=== PATIENT | female | born 1950 | race Caucasian/White ===

== ENCOUNTER 2022-08-14 11:02 | Inpatient (IN) | payer MEDICARE ==
[~2022-08-14] VITALS: Ht 160 cm; Wt 59.0 kg
[~2022-08-14 11:02] MED LIST: AMBIEN10 M1; ATIVAN0.5 MG PO; DAYPRO600 M1 PO; NKHM; ULTRAM50 MG PO; XANAX0.25 MG PO
[2022-08-14] MEDS ORDERED: PALIPERIDONE ER3 MG PO (11:39)
[2022-08-14 13:00] VITALS: BP 119/68
[2022-08-14] MEDS ORDERED: CETIRIZINE10 MG PO (14:16)
[2022-08-14] MEDS ORDERED: 24 HOUR ALLER15.8 ML NAS (14:25)
[2022-08-14] MEDS ORDERED: ARTIFICIAL TEAR1511 OP (14:27)
[2022-08-14 20:00] VITALS: BP 106/67
[2022-08-15 07:09] LABS: HEMATOCRIT 33.6 % (37.0-47.0); MANUAL DIFF REFLEX YES; MEAN CELL VOLUME 108.4 fl (81.0-99.0); MEAN CORPUSCULAR HGB 35.8 pg (27.0-31.0); MEAN PLATELET VOLUME 10.7 fl (9.6-12.3); PLATELET COUNT AUTOMATED 126 10*3/uL (130-400); RED CELL DISTRI WIDTH 13.4 % (0-14.5); WHITE BLOOD COUNT 3.4 10*3/uL (4.8-10.8)
[2022-08-15 07:22] VITALS: BP 100/55
[2022-08-15 07:28] LABS: BUN 8 mg/dl (7-24); CHLORIDE 111 mmol/L (98-107); POTASSIUM 4.6 mmol/L (3.5-5.1); SGOT/AST 59 IU/L (3-35); SODIUM 141 mmol/L (136-145); TOTAL PROTEIN 5.9 gm/dL (6.4-8.2)
[2022-08-15 07:40] LABS: ALKALINE PHOSPHATASE 109 U/L (45-117); CHOLESTEROL 118 mg/dL (<200); CREATININE 0.57 mg/dL (0.55-1.02); LDL CHOLESTEROL 57 mg/dL (9-159); SGPT/ALT 88 U/L (12-78); TRIGLYCERIDES 57 mg/dl (<150)
[2022-08-15 08:20] VITALS: BP 118/68; BP 132/88
[2022-08-15 08:20] LABS: ATYPICAL LYMPHS 1 % (0-0); BASOPHILS 1 % (0-1); TOTAL CELLS COUNTED 100 #CELLS
[2022-08-15 08:24] LABS: PLATELET SUFFICIENCY LOW (NORMAL)
[2022-08-15 08:32] LABS: VITAMIN D, 25-HYDROXY 29.2 ng/mL (30-100)
[2022-08-15 20:00] VITALS: BP 116/54
[2022-08-16 08:00] VITALS: BP 116/53
[2022-08-16 20:00] VITALS: BP 114/50
[2022-08-17 08:00] VITALS: BP 108/42
[2022-08-17 08:23] VITALS: BP 138/76
[2022-08-17 20:00] VITALS: BP 124/68
[2022-08-18 08:25] VITALS: BP 122/60
[2022-08-18 20:00] VITALS: BP 112/71
[2022-08-19 07:39] VITALS: BP 101/67
[2022-08-19 20:00] VITALS: BP 131/80
[2022-08-20 07:26] VITALS: BP 122/59
[2022-08-20 19:51] VITALS: BP 108/66
[2022-08-21 07:54] VITALS: BP 105/51
[2022-08-21 08:08] LABS: HEMATOCRIT 38.2 % (37.0-47.0); MEAN CELL VOLUME 108.8 fl (81.0-99.0); MEAN CORPUSCULAR HGB 35.9 pg (27.0-31.0); MEAN PLATELET VOLUME 10.4 fl (9.6-12.3); PLATELET COUNT AUTOMATED 384 10*3/uL (130-400); RED BLOOD COUNT 3.51 10*6/uL (4.10-5.10); RED CELL DISTRI WIDTH 12.7 % (0-14.5); WHITE BLOOD COUNT 5.3 10*3/uL (4.8-10.8)
[2022-08-21 08:15] LABS: MANUAL DIFF REFLEX YES
[2022-08-21 08:26] LABS: ALKALINE PHOSPHATASE 115 U/L (45-117); BUN 10 mg/dl (7-24); CHLORIDE 106 mmol/L (98-107); CREATININE 0.66 mg/dL (0.55-1.02); SGOT/AST 47 IU/L (3-35); SGPT/ALT 66 U/L (12-78); SODIUM 138 mmol/L (136-145)
[2022-08-21 09:11] LABS: BASOPHILS 2 % (0-1); PLATELET SUFFICIENCY NORMAL (NORMAL); TOTAL CELLS COUNTED 100 #CELLS
[2022-08-21 20:00] VITALS: BP 110/64
[2022-08-22 08:00] VITALS: BP 105/56
[2022-08-22 20:00] VITALS: BP 136/75
[2022-08-23 07:28] VITALS: BP 112/48
[2022-08-23 16:05] LABS: BILIRUBIN Negative (Negative); BLOOD Negative (Negative); CLARITY Clear (Clear); COLOR Yellow (Yellow); GLUCOSE Negative (Negative); KETONE Negative (Negative); LEUKO ESTERASE Trace (Negative); NITRITE Negative (Negative); PH 6.5 (4.5-8.0); SPECIFIC GRAVITY <= 1.005 (1.001-1.030); UROBILINOGEN 0.2 E.U./dl (0.0-1.0)
[2022-08-23 16:17] LABS: EPITHELIAL CELLS 0-2; WBC 0-2 wbc/hpf (0-5)
[2022-08-23 20:00] VITALS: BP 103/68
[2022-08-24 07:19] LABS: HEMATOCRIT 35.1 % (37.0-47.0); MEAN CELL VOLUME 108.3 fl (81.0-99.0); MEAN CORPUSCULAR HGB 36.1 pg (27.0-31.0); MEAN CORPUSCULAR HGB CONC 33.3 g/dl (33.0-37.0); MEAN PLATELET VOLUME 10.4 fl (9.6-12.3); PLATELET COUNT AUTOMATED 372 10*3/uL (130-400); RED BLOOD COUNT 3.24 10*6/uL (4.10-5.10); RED CELL DISTRI WIDTH 12.5 % (0-14.5); WHITE BLOOD COUNT 5.3 10*3/uL (4.8-10.8)
[2022-08-24 07:21] LABS: MANUAL DIFF REFLEX YES
[2022-08-24 07:38] LABS: ALKALINE PHOSPHATASE 103 U/L (45-117); BUN 8 mg/dl (7-24); CHLORIDE 110 mmol/L (98-107); CREATININE 0.69 mg/dL (0.55-1.02); POTASSIUM 4.4 mmol/L (3.5-5.1); SGOT/AST 31 IU/L (3-35); SGPT/ALT 46 U/L (12-78); SODIUM 138 mmol/L (136-145); TOTAL PROTEIN 6.6 gm/dL (6.4-8.2)
[2022-08-24 08:08] LABS: ATYPICAL LYMPHS 1 % (0-0); PLATELET SUFFICIENCY NORMAL (NORMAL); POLYCHROMASIA SLIGHT; TOTAL CELLS COUNTED 100 #CELLS
[2022-08-24 08:12] VITALS: BP 111/57
[2022-08-24 20:00] VITALS: BP 114/52
[2022-08-25 08:00] VITALS: BP 102/57
[2022-08-25] MEDS ORDERED: VITAMIN D350 MC2 PO (08:55)
[2022-08-25] MEDS ORDERED: NATURE'S BLEND F1 MG PO (09:28)
[2022-08-25] MEDS ORDERED: BENZTROPINE ME0.5 MG PO (09:28)
[2022-08-25] MEDS ORDERED: VITAMIN B-1100 M1 PO (09:28)
[2022-08-25] MEDS ORDERED: RAMELTEON8 MG PO (09:28)
[2022-08-25] MEDS ORDERED: HALOPERIDO100 MG/11 IM (09:28)
== END 2022-08-25 13:01 | disposition home or self-care (01) | DRG 885 ==
LOC: 3N 11:02
PROVIDERS: Counselor Professional; ADMIT Psychiatry & Neurology Psychiatry; ATTEND Psychiatry & Neurology Psychiatry
DX: F23 Brief psychotic disorder (principal); E44.0 Moderate protein-calorie malnutrition; F09 Unspecified mental disorder due to known physiological condition; F41.9 Anxiety disorder, unspecified; E78.00 Pure hypercholesterolemia, unspecified; M81.0 Age-related osteoporosis without current pathological fracture; F10.20 Alcohol dependence, uncomplicated; D72.819 Decreased white blood cell count, unspecified; D53.9 Nutritional anemia, unspecified; R73.9 Hyperglycemia, unspecified; E59 Dietary selenium deficiency; R74.01 Elevation of levels of liver transaminase levels; Z88.6 Allergy status to analgesic agent; Z88.0 Allergy status to penicillin; Z88.8 Allergy status to other drugs, medicaments and biological substances; Z98.51 Tubal ligation status; Z82.49 Family history of ischemic heart disease and other diseases of the circulatory system; Z68.23 Body mass index [BMI] 23.0-23.9, adult

== ENCOUNTER 2023-03-27 10:30 | Inpatient (IN) | payer MEDICARE ==
[~2023-03-27] VITALS: Ht 160 cm; Wt 59.2 kg
[2023-03-27 01:18] VITALS: BP 127/51
[2023-03-27 01:32] VITALS: BP 127/51
[~2023-03-27 10:30] MED LIST changes: +24 HOUR ALLER15.8 ML NAS; +ARTIFICIAL TEAR1511 OP; +ATARAX,VISTARIL50 MG PO; +BENZTROPINE ME0.5 MG PO; +CENTRUM SILVER1 EAC1 PO; +CETIRIZINE10 MG PO; +HALOPERIDO100 MG/11 IM; +NATURE'S BLEND F1 MG PO; +ONDANSETRON HYDR4 M1 PO; +PALIPERIDONE ER3 MG PO; +RAMELTEON8 MG PO; +VITAMIN B-1100 M1 PO; +VITAMIN D350 MC2 PO
[2023-03-27 11:03] VITALS: BP 170/81
[2023-03-27 11:32] LABS: BASO # 0.1 10*3/uL (0.0-0.1); BASO % 0.6 % (0.0-1.0); EOS # 0.1 10*3/uL (0.0-0.4); LYMPH # 0.9 10*3/uL (1.3-4.4); LYMPH % 9.6 % (27.0-41.0); MEAN CELL VOLUME 107.5 fl (81.0-99.0); MEAN CORPUSCULAR HGB 37.4 pg (27.0-31.0); MEAN CORPUSCULAR HGB CONC 34.8 g/dl (33.0-37.0); MEAN PLATELET VOLUME 9.1 fl (9.6-12.3); MONO # 0.8 10*3/uL (0.1-1.0); MONO % 8.1 % (3.0-9.0); NEUT # 7.9 10*3/uL (2.3-7.9); NEUT % 80.4 % (47.0-73.0); PLATELET COUNT AUTOMATED 213 10*3/uL (130-400); RED BLOOD COUNT 3.72 10*6/uL (4.10-5.10); RED CELL DISTRI WIDTH 12.2 % (0-14.5); WHITE BLOOD COUNT 9.8 10*3/uL (4.8-10.8)
[2023-03-27 11:44] LABS: ACT PARTIAL THROMBO TIME 23.2 SECONDS (20.0-32.1); INTERNATIONAL NORM RATIO 1.1 (2.0-3.5)
[2023-03-27 11:58] LABS: ALKALINE PHOSPHATASE 121 U/L (46-116); CHLORIDE 100 mmol/L (98-107); LIPASE 28 U/L (12-53); POTASSIUM 4.1 mmol/L (3.4-5.1); SGPT/ALT 9 U/L (10-49); TOTAL PROTEIN 7.3 gm/dL (6.0-8.0)
[2023-03-27 12:14] LABS: BILIRUBIN Negative (Negative); BLOOD Negative (Negative); CLARITY Clear (Clear); COLOR Yellow (Yellow); GLUCOSE Negative (Negative); KETONE Trace (Negative); LEUKO ESTERASE 2+ (Negative); NITRITE Negative (Negative)
[2023-03-27 12:18] LABS: BUN < 5 mg/dl (9-23); ETHYL ALCOHOL < 3.0 mg/dl (<3)
[2023-03-27 12:55] LABS: BACTERIA TRACE; WBC 16-20 wbc/hpf (0-5)
[2023-03-28] VITALS: BP 121/60
[2023-03-28 01:35] VITALS: BP 127/51
[2023-03-28 06:29] LABS: ALKALINE PHOSPHATASE 88 U/L (46-116); BUN 5 mg/dl (9-23); CHLORIDE 105 mmol/L (98-107); CHOLESTEROL 167 mg/dL (<200); FREE T4 1.11 ng/dl (0.89-1.76); LDL CHOLESTEROL 100 mg/dL (9-159); POTASSIUM 4.2 mmol/L (3.4-5.1); THYROID STIM HORMONE (HS) 3.866 uIU/ml (0.550-4.780); TOTAL PROTEIN 5.4 gm/dL (6.0-8.0); TRIGLYCERIDES 71 mg/dl (<150)
[2023-03-28 06:34] LABS: SGPT/ALT < 7 U/L (10-49)
[2023-03-28 06:38] LABS: HEMATOCRIT 32.7 % (37.0-47.0); MEAN CORPUSCULAR HGB CONC 33.9 g/dl (33.0-37.0); MEAN PLATELET VOLUME 9.7 fl (9.6-12.3); PLATELET COUNT AUTOMATED 153 10*3/uL (130-400); RED BLOOD COUNT 2.92 10*6/uL (4.10-5.10); RED CELL DISTRI WIDTH 12.6 % (0-14.5); WHITE BLOOD COUNT 4.1 10*3/uL (4.8-10.8)
[2023-03-28 06:40] LABS: MANUAL DIFF REFLEX YES
[2023-03-28 07:36] LABS: BASOPHILS 1 % (0-1); PLATELET SUFFICIENCY NORMAL (NORMAL); POLYCHROMASIA SLIGHT; TOTAL CELLS COUNTED 100 #CELLS
[2023-03-28 08:00] VITALS: BP 96/45
[2023-03-28 08:39] LABS: VITAMIN D, 25-HYDROXY 29.7 ng/mL (30-100)
[2023-03-28 12:00] VITALS: BP 103/54
[2023-03-28 20:00] VITALS: BP 111/61
[2023-03-29] VITALS: BP 102/60
[2023-03-29 06:19] LABS: HEMATOCRIT 33.8 % (37.0-47.0); MEAN CELL VOLUME 112.3 fl (81.0-99.0); MEAN CORPUSCULAR HGB 37.9 pg (27.0-31.0); MEAN CORPUSCULAR HGB CONC 33.7 g/dl (33.0-37.0); MEAN PLATELET VOLUME 9.8 fl (9.6-12.3); PLATELET COUNT AUTOMATED 155 10*3/uL (130-400); RED BLOOD COUNT 3.01 10*6/uL (4.10-5.10); RED CELL DISTRI WIDTH 12.6 % (0-14.5); WHITE BLOOD COUNT 3.7 10*3/uL (4.8-10.8)
[2023-03-29 06:20] LABS: MANUAL DIFF REFLEX YES
[2023-03-29 06:33] LABS: BUN 6 mg/dl (9-23); CHLORIDE 104 mmol/L (98-107); POTASSIUM 4.9 mmol/L (3.4-5.1)
[2023-03-29 07:19] LABS: BASOPHILS 1 % (0-1); TOTAL CELLS COUNTED 100 #CELLS
[2023-03-29 07:20] LABS: OVALOCYTES FEW; PLATELET SUFFICIENCY NORMAL (NORMAL); POLYCHROMASIA SLIGHT; ROULEAUX SLIGHT
[2023-03-29 08:00] VITALS: BP 122/56
[2023-03-29 12:00] VITALS: BP 128/55
[2023-03-29] MEDS ORDERED: ONDANSETRON4 MG SL (13:55)
[2023-03-29] MEDS ORDERED: ATARAX,VISTARIL50 MG PO (13:55)
== END 2023-03-29 15:35 | disposition home or self-care (01) | DRG 897 ==
LOC: ED 10:30 → EDHOLD 13:32 → ICCU 13:32 → EDHOLD 14:01 → ICCU 03-28 00:35
PROVIDERS: Emergency Medicine; Student in an Organized Health Care Education/Training Program; ADMIT Family Medicine; ATTEND Family Medicine
DX: F10.239 Alcohol dependence with withdrawal, unspecified (principal); N39.0 Urinary tract infection, site not specified; E87.20 Acidosis, unspecified; E87.1 Hypo-osmolality and hyponatremia; F20.9 Schizophrenia, unspecified; Y90.9 Presence of alcohol in blood, level not specified; R73.9 Hyperglycemia, unspecified; K76.0 Fatty (change of) liver, not elsewhere classified; M81.0 Age-related osteoporosis without current pathological fracture; Z88.0 Allergy status to penicillin; Z88.5 Allergy status to narcotic agent; Z88.8 Allergy status to other drugs, medicaments and biological substances; Z79.899 Other long term (current) drug therapy; Z98.51 Tubal ligation status; Z82.49 Family history of ischemic heart disease and other diseases of the circulatory system